=== PATIENT | female | born 1985 | race Caucasian/White ===

== ENCOUNTER 2023-07-03 04:59 | Emergency (ER) | payer OTHER ==
[~2023-07-03] VITALS: Ht 154.9 cm; Wt 68.2 kg
[2023-07-03 05:04] VITALS: TEMP 97.9
[2023-07-03] MEDS ORDERED: GABA-1216 PO (05:09)
[2023-07-03 07:30] VITALS: BP 122/79; PULSE 70; RESP 16
[2023-07-03] MEDS ORDERED: IBUP-1554 PO (07:40)
== END 2023-07-03 08:28 | disposition home or self-care (01) ==
LOC: EMS 04:59
DX: S20.212A Contusion of left front wall of thorax, initial encounter (principal); F43.20 Adjustment disorder, unspecified; M79.7 Fibromyalgia; F17.210 Nicotine dependence, cigarettes, uncomplicated; F12.90 Cannabis use, unspecified, uncomplicated; V49.9XXA Car occupant (driver) (passenger) injured in unspecified traffic accident, initial encounter; Y93.89 Activity, other specified; Y92.89 Other specified places as the place of occurrence of the external cause; Y99.8 Other external cause status
CPT/HCPCS: 71101; 99283

== ENCOUNTER 2023-11-02 22:19 | Emergency (ER) | payer OTHER ==
[~2023-11-02] VITALS: Ht 152.4 cm; Wt 68.2 kg
[~2023-11-02 22:19] MED LIST: GABA-1216 PO; IBUP-1554 PO
[2023-11-02 22:30] VITALS: TEMP 98.8
[2023-11-03] MEDS ORDERED: MAG HYDROX/ALUMINUM HYD/SIMETH ES 30 ML SUSPENSION UDCUP PO ONE (01:15)
[2023-11-03 02:00] VITALS: BP 105/88; PULSE 55; RESP 15
[2023-11-03 02:06] LABS: TROPONIN I-HIGH SENSITIVITY 5 ng/L (<51)
[2023-11-03] MEDS ORDERED: KETOROLAC TROMETHAMINE 60 MG/2 ML VIAL IM ONE (02:30)
[2023-11-03] MEDS ORDERED: FAMO20 PO (02:31)
== END 2023-11-03 02:41 | disposition home or self-care (01) ==
LOC: EMS 22:24
DX: R10.13 Epigastric pain (principal); R07.89 Other chest pain; F17.210 Nicotine dependence, cigarettes, uncomplicated; F12.90 Cannabis use, unspecified, uncomplicated
CPT/HCPCS: 99284; 84484; 36415; 93005; 96372; J1885